=== PATIENT | female | born 1955 | race Caucasian/White ===

== ENCOUNTER 2023-08-27 12:13 | Emergency (ER) | payer MEDICARE ==
[~2023-08-27] VITALS: Ht 167.6 cm; Wt 54.4 kg
[~2023-08-27 12:13] MED LIST: IBUPROFEN PO
[2023-08-27 12:17] VITALS: O2SAT 99
[2023-08-27] MEDS ORDERED: TETRACAINE HCL 0.5% OPHT DROP 2 ML BOTTLE ONE (13:13)
[2023-08-27] MEDS ORDERED: FLUORESCEIN SODIUM 1 MG STRIP ONE (13:13)
[2023-08-27] MEDS ORDERED: TETRACAINE HCL 0.5% OPHT DROP 2 ML BOTTLE OP ONE (13:15)
[2023-08-27] MEDS ORDERED: FLUORESCEIN SODIUM 1 MG STRIP OP ONE (13:15)
== END 2023-08-27 13:42 | disposition home or self-care (01) ==
LOC: ER 12:28
DX: T15.92XA Foreign body on external eye, part unspecified, left eye, initial encounter (principal); H10.9 Unspecified conjunctivitis; Z79.1 Long term (current) use of non-steroidal anti-inflammatories (NSAID); X58.XXXA Exposure to other specified factors, initial encounter; Y93.89 Activity, other specified; Y92.89 Other specified places as the place of occurrence of the external cause; Y99.8 Other external cause status
CPT/HCPCS: A4606; A4663

== ENCOUNTER 2024-08-10 12:28 | Emergency (ER) | payer MEDICARE, OTHER ==
[~2024-08-10] VITALS: Ht 167.6 cm; Wt 59.0 kg
[2024-08-10 13:23] VITALS: BP 122/60; TEMP 97.8; O2SAT 99
== END 2024-08-10 13:24 | disposition home or self-care (01) ==
LOC: ER 12:28
DX: S13.4XXA Sprain of ligaments of cervical spine, initial encounter (principal); F32.A Depression, unspecified; Z79.899 Other long term (current) drug therapy; V89.2XXA Person injured in unspecified motor-vehicle accident, traffic, initial encounter; Y93.89 Activity, other specified; Y92.89 Other specified places as the place of occurrence of the external cause; Y99.8 Other external cause status
CPT/HCPCS: A4606; A4663